=== PATIENT | female | born 1995 | race Two or more races ===

== ENCOUNTER → 2022-01-06 | Outpatient (CLI) | payer BC | LOC: M WHC 09:33 | PROVIDERS: ATTEND Nurse Practitioner Family | DX: Z97.5 Presence of (intrauterine) contraceptive device (principal) ==

== ENCOUNTER → 2022-07-23 | Outpatient (REF) | payer BC | LOC: M PLALAB 16:19 | PROVIDERS: ATTEND Nurse Practitioner Family | DX: Z12.4 Encounter for screening for malignant neoplasm of cervix (principal); R87.615 Unsatisfactory cytologic smear of cervix | CPT/HCPCS: 87624; G0123 ==

== ENCOUNTER → 2022-09-01 | Outpatient (REF) | payer BC | LOC: M SFHCWAGY 10:33 | PROVIDERS: ATTEND Nurse Practitioner Family | DX: Z12.4 Encounter for screening for malignant neoplasm of cervix (principal); R87.615 Unsatisfactory cytologic smear of cervix ==

== ENCOUNTER → 2022-12-08 | Outpatient (CLI) | payer BC ==
[2022-12-08 15:56] LABS: HEMATOCRIT 38.2 % (36.0-47.0); HEMOGLOBIN 13.5 g/dl (12.0-15.5); MEAN CORPUSCULAR HGB CONC 35.3 g/dl (32.0-36.5); MEAN CORPUSCULAR VOLUME 87.6 fl (80.0-96.0); PLATELET COUNT, AUTOMATED 260 10^3/uL (150-450); RED BLOOD COUNT 4.36 10^6/uL (4.00-5.40); WHITE BLOOD COUNT 10.2 10^3/uL (4.0-10.0)
[2022-12-08 16:42] LABS: HIV 1&2 SCREEN NEGATIVE (NEGATIVE)
[2022-12-08 16:50] LABS: HEPATITIS C VIRUS ABY INDEX 0.11 INDEX (<0.8)
[2022-12-08 19:35] LABS: GC DNA AMPLIFICATION NEGATIVE (NEGATIVE)
== END ==
LOC: M PLALAB 14:36
PROVIDERS: ATTEND Advanced Practice Midwife
DX: Z34.01 Encounter for supervision of normal first pregnancy, first trimester (principal)

== ENCOUNTER → 2023-02-11 | Outpatient (CLI) | payer BC | LOC: M WHC 15:32 | PROVIDERS: ATTEND Advanced Practice Midwife | DX: Z34.02 Encounter for supervision of normal first pregnancy, second trimester (principal) ==

== ENCOUNTER → 2023-03-11 | Outpatient (CLI) | payer BC, SELFPAY | LOC: M WHC 07:19 | PROVIDERS: ATTEND Obstetrics & Gynecology | DX: Z36.2 Encounter for other antenatal screening follow-up (principal) ==

== ENCOUNTER → 2023-04-04 | Outpatient (CLI) | payer BC ==
[2023-04-04 15:50] LABS: HEMATOCRIT 33.2 % (36.0-47.0); HEMOGLOBIN 11.6 g/dl (12.0-15.5); MEAN CORPUSCULAR HEMOGLOBIN 31.7 pg (27.0-33.0); MEAN CORPUSCULAR HGB CONC 34.9 g/dl (32.0-36.5); MEAN CORPUSCULAR VOLUME 90.7 fl (80.0-96.0); PLATELET COUNT, AUTOMATED 240 10^3/uL (150-450); RED BLOOD COUNT 3.66 10^6/uL (4.00-5.40)
[2023-04-04 17:11] LABS: CHLAMYDIA DNA AMPLIFICATION NEGATIVE (NEGATIVE); GC DNA AMPLIFICATION NEGATIVE (NEGATIVE)
== END ==
LOC: M PLALAB 12:42
PROVIDERS: ATTEND Obstetrics & Gynecology
DX: Z34.82 Encounter for supervision of other normal pregnancy, second trimester (principal); Z3A.22 22 weeks gestation of pregnancy

== ENCOUNTER → 2023-05-10 | Outpatient (CLI) | payer BC | LOC: M WHC 14:41 | PROVIDERS: ATTEND Specialist | DX: Z34.82 Encounter for supervision of other normal pregnancy, second trimester (principal) ==

== ENCOUNTER → 2023-06-06 | Outpatient (REF) | payer BC | LOC: M PLALAB 16:00 | PROVIDERS: ATTEND Obstetrics & Gynecology | DX: O16.3 Unspecified maternal hypertension, third trimester (principal); Z3A.36 36 weeks gestation of pregnancy; O32.1XX0 Maternal care for breech presentation, not applicable or unspecified ==

== ENCOUNTER → 2023-06-07 | Outpatient (CLI) | payer BC ==
[2023-06-07 15:43] LABS: HEMATOCRIT 33.2 % (36.0-47.0); HEMOGLOBIN 11.3 g/dl (12.0-15.5); MEAN CORPUSCULAR HEMOGLOBIN 30.8 pg (27.0-33.0); MEAN CORPUSCULAR VOLUME 90.5 fl (80.0-96.0); PLATELET COUNT, AUTOMATED 215 10^3/uL (150-450); RED BLOOD COUNT 3.67 10^6/uL (4.00-5.40); WHITE BLOOD COUNT 12.9 10^3/uL (4.0-10.0)
[2023-06-07 16:02] LABS: TOTAL PROTEIN,RANDOM URINE 13.6 MG/DL (0.0-14.0)
[2023-06-07 16:06] LABS: ALKALINE PHOSPHATASE 117 U/L (46-116); ALT/SGPT 12 U/L (7.0-40); AST/SGOT < 8 U/L (<34); BILIRUBIN,TOTAL 0.7 MG/DL (0.3-1.2); BLOOD UREA NITROGEN 6 MG/DL (9-23); CALCIUM LEVEL 9.7 MG/DL (8.5-10.1); CARBON DIOXIDE LEVEL 25 MMOL/L (20-31); CHLORIDE LEVEL 105 MMOL/L (98-107); CREATININE FOR GFR 0.47 MG/DL (0.55-1.30); GLOMERULAR FILTRATION RATE > 60.0 (>60); GLUCOSE, FASTING 89 MG/DL (60-100); POTASSIUM SERUM 3.8 MMOL/L (3.5-5.1); SODIUM LEVEL 137 MMOL/L (136-145); TOTAL PROTEIN 6.5 G/DL (5.7-8.2)
== END ==
LOC: M PLALAB 14:51
PROVIDERS: ATTEND Obstetrics & Gynecology
DX: O16.3 Unspecified maternal hypertension, third trimester (principal)

== ENCOUNTER 2023-06-27 05:37 | Inpatient (IN) | payer BC ==
[~2023-06-27] VITALS: Ht 160 cm; Wt 109.0 kg
[2023-06-27] VITALS (10 sets, daily range): BP systolic 108–139; BP diastolic 57–81; TEMP 97.7; O2SAT 97–100
[~2023-06-27 05:37] MED LIST: OMEP-173 PO; PRENTAB53 PO; heparin SC
[2023-06-27] MEDS: LR 1,000 ML IV SCH (06:13)
[2023-06-27] MEDS ORDERED: HOME MED LIST COMPLETE! XX SCH (06:15)
[2023-06-27 06:28] LABS: HEMATOCRIT 35.5 % (36.0-47.0); HEMOGLOBIN 12.6 g/dl (12.0-15.5); MEAN CORPUSCULAR HEMOGLOBIN 31.1 pg (27.0-33.0); MEAN CORPUSCULAR HGB CONC 35.5 g/dl (32.0-36.5); MEAN CORPUSCULAR VOLUME 87.7 fl (80.0-96.0); PLATELET COUNT, AUTOMATED 244 10^3/uL (150-450); RED BLOOD COUNT 4.05 10^6/uL (4.00-5.40); WHITE BLOOD COUNT 13.6 10^3/uL (4.0-10.0)
[2023-06-27] MEDS ORDERED: OXYTOCIN 30UNITS IN 0.9% NaCl 500ML IV BAG As Ordered ONE (07:19)
[2023-06-27] MEDS ORDERED: MORPHINE PRES-FREE INJ 10 MG/10 ML VIAL As Ordered ONE (07:19)
[2023-06-27] MEDS: BICITRA 30ML SOLN UDC PO ONE (07:31)
[2023-06-27] MEDS: ceFAZolin SOD 2 GM in IV 1 EA IV ONE (07:36)
[2023-06-27] MEDS ORDERED: KETOROLAC 60MG 2ML VIAL As Ordered ONE (07:37)
[2023-06-27] MEDS ORDERED: METOCLOPRAMIDE INJ 10MG/2ML VIAL As Ordered ONE (07:37)
[2023-06-27] MEDS ORDERED: ONDANSETRON 4MG 2ML VIAL As Ordered ONE (07:37)
[2023-06-27] MEDS ORDERED: PHENYLephrine 500MCG 5ML (100MCG/ML) SYRINGE As Ordered ONE (08:08)
[2023-06-27] MEDS ORDERED: ePHEDrine SULFATE 25 MG/5 ML(5MG/ML) SYRINGE As Ordered ONE (08:08)
[2023-06-27] MEDS ORDERED: ACETAMINOPHEN 1000MG 100ML IV BAG As Ordered ONE (08:18)
[2023-06-27] MEDS ORDERED: DOCUSATE SODIUM 100MG CAPSULE PO PRN (09:05)
[2023-06-27] MEDS ORDERED: RHOGAM 300MCG (1500IU) INJ IM SCH (09:05)
[2023-06-27] MEDS ORDERED: SIMETHICONE 80MG CHEW TAB PO PRN (09:05)
[2023-06-27] MEDS ORDERED: ACETAMINOPHEN 500 MG TAB PO SCH (09:05)
[2023-06-27] MEDS ORDERED: ONDANSETRON 4MG 2ML VIAL IV PRN (09:05)
[2023-06-27] MEDS ORDERED: oxyCODONE 5MG TAB PO PRN ×2 (09:05)
[2023-06-27] MEDS ORDERED: METOCLOPRAMIDE INJ 10MG/2ML VIAL IV PRN ×2 (09:05→09:45)
[2023-06-27] MEDS ORDERED: OXYC-517 PO (09:22)
[2023-06-27] MEDS ORDERED: LOVE1INJ2 SC (09:22)
[2023-06-27] MEDS ORDERED: COLA100C5 PO (09:22)
[2023-06-27] MEDS ORDERED: IBUP-1022 PO (09:22)
[2023-06-27] MEDS ORDERED: ACET-683 PO (09:22)
[2023-06-27] MEDS: OXYTOCIN DRIP 30 UNITS in IV 1 EA IV SCH (09:44)
[2023-06-27] MEDS ORDERED: **NOTE PATIENT COMMENT** MISC XX SCH (09:45)
[2023-06-27] MEDS ORDERED: fentaNYL 100 MCG/2 ML INJECTION IV PRN (09:45)
[2023-06-27] MEDS ORDERED: PERCOCET 5MG/325MG TAB PO PRN (09:45)
[2023-06-27] MEDS ORDERED: NALOXONE INJ 0.4MG/1ML VIAL IV PRN ×2 (09:45)
[2023-06-27] MEDS ORDERED: PROMETHAZINE 25MG/ML 1ML VIAL IV PRN (09:45)
[2023-06-27] MEDS ORDERED: MEPERIDINE 25 MG/ML 1ML VIAL IV PRN (09:45)
[2023-06-27] MEDS ORDERED: diphenhydrAMINE 50MG/ML VIAL IV PRN (09:45)
[2023-06-27] MEDS: ONDANSETRON 4MG 2ML VIAL IV PRN (10:21)
[2023-06-27] MEDS: SLF 3 ML SYR IV SCH (14:56)
[2023-06-27] MEDS: ENOXAPARIN 40MG/0.4ML SYRINGE (J1650 PER 10MG) SC SCH (14:57)
[2023-06-27] MEDS: KETOROLAC 30 MG/ML 1ML VIAL IV SCH (14:58)
[2023-06-27] MEDS: ACETAMINOPHEN 500 MG TAB PO SCH (14:59)
[2023-06-28 02:00] VITALS: BP 112/56; O2SAT 100
[2023-06-28 06:00] VITALS: BP 120/56; O2SAT 99
[2023-06-28 06:33] LABS: HEMATOCRIT 29.1 % (36.0-47.0); MEAN CORPUSCULAR HEMOGLOBIN 31.9 pg (27.0-33.0); MEAN CORPUSCULAR HGB CONC 35.4 g/dl (32.0-36.5); MEAN CORPUSCULAR VOLUME 90.1 fl (80.0-96.0); PLATELET COUNT, AUTOMATED 227 10^3/uL (150-450); RED BLOOD COUNT 3.23 10^6/uL (4.00-5.40); WHITE BLOOD COUNT 20.2 10^3/uL (4.0-10.0)
[2023-06-28 06:35] LABS: HEMOGLOBIN 10.3 g/dl (12.0-15.5)
[2023-06-28] MEDS: PRENATAL VITAMINS CHEWABLE TABLET PO SCH (09:01)
[2023-06-28 10:00] VITALS: BP 126/64; O2SAT 95
[2023-06-28] MEDS: IBUPROFEN 600MG TAB PO SCH (10:58)
[2023-06-28 18:00] VITALS: BP 124/70; O2SAT 99
[2023-06-28 22:00] VITALS: BP 115/56; O2SAT 97
[2023-06-29 02:00] VITALS: BP_SYST 115; BP_SYST 130; BP_DIAS 53; BP_DIAS 61; O2SAT 99
[2023-06-29 06:00] VITALS: BP 118/57; O2SAT 98
[2023-06-29] MEDS: MEASLES,MUMPS,RUBELLA VACCINE INJ (MMR-II) SC.IMMUN ONE (08:14)
[2023-06-29] MEDS: BOOSTRIX VACCINE (TETANUS/DIPHTH/ACEL. PERTUSSIS) 0.5ML SYR IM.IMMUN ONE (11:19)
== END 2023-06-29 12:00 | disposition home or self-care (01) | DRG 540 ==
LOC: M LDI 05:37 → M OBS 10:46
PROVIDERS: ADMIT Obstetrics & Gynecology; ATTEND Obstetrics & Gynecology
PROC: 10D00Z1 Extraction of Products of Conception, Low, Open Approach (ICD-10-PCS; principal; 2023-06-27 07:30)
DX: O32.1XX0 Maternal care for breech presentation, not applicable or unspecified (principal); Z37.0 Single live birth; Z3A.39 39 weeks gestation of pregnancy